=== PATIENT | female | born 1950 | race Caucasian/White ===

== ENCOUNTER 2025-04-13 18:50 | Emergency (ER) | payer OTHER ==
--- OUTSIDE RECORDS SUMMARY | 2025-04-13 18:53 | XMS REPORT | Clinical Summary ---
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 Gender Identity Not on file Sexual Orientation Not on file Plan of Treatment Upcoming Encounters Date Type Department Care Team (Late st Contact Info) Description 04/14/2025 1:00 PM CDT NPR MDA PATIENT ACCESS Rosy Haines MD [address] [place] [address] [phone] [email or web address] 04/14/2025 1:45 PM CDT Hospital Encounter Breast Imaging [address] [facility], 5th Floor Ele[address] [place], [place] [id number] Rosy Haines MD [address] [place] [address] [phone] [email or web address] Health Maintenance Due Date Last Done Comments Pneumococcal Vaccine: 50+ Ye ars (1 of 1 - PCV) 2001 COVID-19 Vaccine (4 - 2024- season) 2025 03/04/2021, 09/05/2020, 08/11/2020 Influenza Vaccine (#1) 2025 Insurance MEDICARE PART A AND B Member Subscriber Plan / Payer (Ef fective 2016-Present) Name:Ginger, Abbi Law Member ID:[id number] Relation to Subscriber:Self Name:Abbi Miles Subscriber ID:[id number] Payer ID:[id number] Group ID:Not on file Type:Medicare Address: [employer] [address] [place] [address] AET SENIOR SUPPLEMENT-SECONDARY ONLY [facility] Address: [address] [address] [place] [address] MEDICARE PART A AND B Member Subscriber Plan / Payer (Ef fective 2016-Present) Name:Ginger, Abbi Law Member ID:[id number] Relation to Subscriber:Self Name:Ginger, Abbi Law Subscriber ID:[id number] Payer ID:[id number] Group ID:Not on file Type:Medicare Address: [employer] [address] [place] [address] [place] SENIOR SUPPLEMENT-SECONDARY ONLY [facility] Address: [address] [address] [place] [address] Advance Directives * Full Code (Latest Code Status on File) Date Activated Date Inactivated Comments 04/07/2025 1:12 PM Update based o n Advanced Directive Documentation Care Teams Link Knitting Machine Operator Relationship Specialty Start Date End Date Rosy Haines MD [facility] [place] [address] [email or web address] PCP - General 09/02/15 Azalia Ken MD [facility] [place] [address] [email or web address] PCP - External Follow Up A 09/18/14 Kaiser Goodson MD [address] [place] [address] PCP - External Referring 04/04/25 Kaiser Goodson MD [address] [place] [address] PCP - External Follow Up B 04/04/25 Rosy Haines MD [address] [place] [id number] [email or web address] [email or web address] 09/09/15
[2025-04-13] MEDS ORDERED: FENTANYL CITR 100 MCG/2 ML ONE (19:36)
[2025-04-13] MEDS ORDERED: ONDANSETRON 4 MG/2 ML VIAL ONE (19:36)
[2025-04-13] MEDS ORDERED: NA CHLORIDE 0.9% 1,000 ML ONE (19:38)
[2025-04-13 19:43] LABS: Absolute Lymphocytes (CBC) 0.8 K/uL (0.7-4.9); Hematocrit 40.4 % (36.0-45.0); Hemoglobin 13.8 g/dL (12.0-15.0); MCH 30.4 pg (27.0-35.0); MCHC 34.3 g/dL (32.0-36.0); MCV 88.5 fL (80-100); MPV 7.9 fL (7.6-11.3); Nucleated RBC Absolute Count 0.0 (0-0); Nucleated Red Blood Cells % 0.0 % (0-0); RBC Red Blood Cell Count 4.56 M/uL (3.86-4.86); White Blood Count 7.40 thou/uL (4.3-10.9)
[2025-04-13 20:05] LABS: ALT/SGPT 38.0 U/L (13-56); AST/SGOT 32.0 U/L (15-37); Albumin 3.1 g/dL (3.4-5.0); Albumin/Globulin Ratio 0.5 (1.1-1.8); Alkaline Phosphatase 61.0 U/L (45-117); Anion Gap 9.6 mEq/L (5.0-15.0); BUN Blood Urea Nitrogen 17.0 mg/dL (7-18); Globulin 6.0 g/dL (2.3-3.5); Glucose Level 122.0 mg/dL (74-106); Lipase 74.0 U/L (13-75); Potassium 3.6 mEq/L (3.5-5.1)
--- NOTE | 2025-04-13 20:46 | RAD REPORT ---
EXAMINATION: CT ABDOMEN AND PELVIS WITHOUT AND WITH CONTRAST CLINICAL INDICATION: right flank pain TECHNIQUE: CT abdomen and pelvis was performed, before and after the administration of IV contrast, a s per department protocol. Axial, sagittal and coronal reconstructions were obtained. One or more of the following dose reduction techniques were used: Automated exposure control, adjustment of the m A and/or kV according to patient size, and/or iterative reconstruction. Unless otherwise specified, incidental findings do not require dedicated imaging follow-up. COMPARISON: 02/08/2016 FINDINGS: LOWER CHEST: The visualized lung bases are clear. Moderate hiatal hernia. LIVER: Mild fatty liver is seen. Several small low-density lesions are present likely benign cysts. N o intra or extrahepatic biliary tree dilatation suspected. Grossly unremarkable gallbladder. SPLEEN: Normal size. No focal lesion. PANCREAS: No mass, ductal dilation, or gregory-pancreatic fluid. ADRENALS: Normal; no mass. KIDNEYS AND URETERS: Mild right hydronephrosis and hydroureter is present. 4 mm calculus is present i n the distal right ureter. No left-sided urinary tract stone or hydronephrosis. URINARY BLADDER: Normal in appearance. No suspicious mass or stone. GASTROINTESTINAL TRACT: No evidence of bowel obstruction, free air, significant free fluid or abscess . Moderate stool is seen throughout the colon. APPENDIX: Appendix not visualized, but no inflammatory changes in region of appendix. LYMPH NODES: No lymphadenopathy. REPRODUCTIVE ORGANS: No pathologic process. MUSCULOSKELETAL: Mild lower lumbar spondylosis with mild anterolisthesis L4 on 5. ADDITIONAL FINDINGS: None. IMPRESSION: Mild/moderate right-sided hydronephrosis and hydroureter likely caused by a 4 mm lower right ureter s tone.
[2025-04-13 20:56] LABS: Sqamous Epithelial <5 /HPF (None Seen); Urine Culture Reflex Order NOT NEEDED; Urine Microscopic Reflex YN ORDER UMIC
[2025-04-13] MEDS ORDERED: TAMSULOSIN 0.4 MG SR CAP ONE (21:21)
[2025-04-13] MEDS ORDERED: KETOROLAC 30 MG/ML INJ ONE (21:21)
--- NOTE | 2025-04-13 21:35 | EDPHYS ---
Physician Documentation [facility] Name: Abbi Miles Age: 75 yrs Sex: Female : 1950 Arrival Date: 04/13/2025 Time: 18:50 Bed 6 Private MD: ED Physician Aman Swanson HPI: 04/13 19:20 This 75 yrs old Female presents to ER via Ambulatory with complaints of Abdominal Pain, cp Low Back Pain. 19:20 The patient presents with abdominal pain right lateral lower abdomen. cp 19:20 Onset: The symptoms/episode began/occurred today, with pain starting in right lower cp back and right flank at 1530. Associated signs and symptoms: Pertinent positives: nausea, Pertinent negatives: blood in stools, chest pain, constipation, diarrhea, fever, active vomiting. The symptoms are described as constant. Modifying factors: the symptoms are aggravated by movement. Historical: - Allergies: 19:00 Morphine; dd2 - PMHx: 19:00 Hypertensive disorder; dd2 - PSHx: 19:00 Total abdominal hysterectomy; Appendectomy; dd2 - Immunization history:: Adult Immunizations up to date. - Infectious Disease History:: Denies. - Social history:: Smoking status: Patient denies any tobacco usage or history of. ROS: 19:25 Constitutional: Negative for body aches, chills, fever, poor PO intake, cp 19:25 Cardiovascular: Negative for chest pain, palpitations, cp 19:25 Respiratory: Negative for cough, shortness of breath, wheezing, 19:25 Abdomen/GI: Positive for abdominal pain, nausea, Negative for diarrhea, constipation, active vomiting, 19:25 Back: Positive for flank pain, on the right, 19:25 : Negative for difficulty urinating, 19:25 Neuro: Negative for altered mental status, dizziness, headache, weakness, 19:25 All other systems are negative, Exam: 19:25 Head/Face: Normocephalic, atraumatic. cp 19:25 Constitutional: The patient appears in no acute distress, alert, awake, non-diaphoretic, non-toxic, well developed, well nourished, uncomfortable, 19:25 Eyes: Periorbital structures: appear normal, Conjunctiva: normal, no exudate, no injection, Sclera: no appreciated abnormality, Lids and lashes: appear normal, bilaterally, 19:25 ENT: External ear(s): are unremarkable, Nose: is normal, Mouth: Lips: moist, Oral mucosa: moist, Posterior pharynx: Airway: no evidence of obstruction, patent, 19:25 Neck: ROM/movement: is normal, is supple, without pain, no range of motions limitations, 19:25 Chest/axilla: Inspection: normal, 19:25 Cardiovascular: Rate: normal, 19:25 Respiratory: the patient does not display signs of respiratory distress, Respirations: normal, no use of accessory muscles, no retractions, labored breathing, is not present, Breath sounds: are clear throughout, no decreased breath sounds, no stridor, no wheezing, 19:25 Abdomen/GI: Inspection: abdomen appears normal, Bowel sounds: active, all quadrants, Palpation: soft, in all quadrants, moderate abdominal tenderness, in the posterior aspect of right lateral abdomen, anterior aspect of right lateral abdomen and right lower quadrant, rebound tenderness, is not appreciated, involuntary guarding, is not appreciated, 19:25 Back: pain, that is moderate, of the right low back, ROM is painful, with all movement, 19:25 Neuro: Orientation: to person, place \T\ time. Mentation: is normal, Motor: moves all fours, strength is normal, Sensation: is normal, Vital Signs: 18:58 BP 166 / 90; Pulse 93; Resp 17; Temp 98.9; Pulse Ox 99% ; Weight 81.65 kg; Pain 10/10; dd2 19:45 BP 144 / 73; Pulse 85; Resp 16; Pulse Ox 95% ; vc1 20:45 BP 138 / 80; Pulse 86; Resp 16; Pulse Ox 95% ; vc1 21:57 BP 128 / 70; Pulse 88; Resp 18; Temp 98.9; Pulse Ox 96% ; Pain 3/10; vc1 18:58 Pain Scale: Adult dd2 21:57 Pain Scale: Adult vc1 Emilia Coma Score: 22:06 Eye Response: spontaneous(4). Motor Response: obeys commands(6). Verbal Response: bm8 oriented(5). Total: 15. MDM: 18:56 Medical Screening Exam initiated cp 20:00 Differential diagnosis: appendicitis, cholecystitis, Cholelithiasis, diverticulitis, cp gastritis, Pyelonephritis, Ureterolithiasis, urinary tract infection, sepsis. 21:34 Data reviewed: vital signs, nurses notes, lab test result(s), radiologic studies, CT cp scan, and as a result, I will discharge patient. 21:35 I considered the following discharge prescriptions or medication management in the emergency department Medications were administered in the Emergency Department. See MAR. 21:35 Care significantly affected by the following chronic conditions: Hypertension. Counseling: I had a detailed discussion with the patient and/or guardian regarding the historical points, exam findings, and any diagnostic results supporting the discharge/admit diagnosis, lab results, radiology results, to return to the emergency department if symptoms worsen or persist or if there are any questions or concerns that arise at home. Response to treatment: pain and nausea improved, and as a result, I will discharge patient. 04/13 19:12 Order name: CBC with Diff; Complete Time: 21:11 04/13 21:11 Interpretation: Normal except: ERNA% 84.0; LYM% 10.7. 04/13 19:12 Order name: CMP; Complete Time: 21:11 04/13 21:11 Interpretation: Normal except: GLUC 122; GFR 61; TP 9.1; ALB 3.1; GLOB 6.0; A/G 0.5. 04/13 19:12 Order name: Lipase; Complete Time: 21:11 04/13 19:12 Order name: UA Rfx Eddie Cult if indicated; Complete Time: 21:11 04/13 21:11 Interpretation: Normal except: UCLA Extremely Turbid; UBLD 3+ (OVER); UPH 8.0; URBC >50. 04/13 19:51 Order name: CT Abd/Pelvis- W/WO Contrast; Complete Time: 21:11 04/13 19:12 Order name: IV Saline Lock; Complete Time: 19:49 04/13 19:12 Order name: Labs collected and sent; Complete Time: 19:49 cp Administered Medications: 19:48 Drug: NS 0.9% IV 1000 ml IV at 1000 ml once; to be given as a bolus over 60 minutes vc1 Route: IV; Rate: 1000 ml; Site: right wrist; 21:20 Follow up: IV Status: Completed infusion; IV Intake: 1000ml vc1 19:49 Drug: Ondansetron IVP 4 mg IVP once; over 2 minutes Route: IVP; Site: right wrist; vc1 20:00 Follow up: Response: No adverse reaction; Marked relief of symptoms vc1 19:49 Drug: fentaNYL (PF) IVP 25 mcg IVP once Route: IVP; Site: right wrist; vc1 20:00 Follow up: Response: No adverse reaction; Marked relief of symptoms vc1 21:26 Drug: Flomax PO 0.4 mg PO once Route: PO; bm8 22:07 Follow up: Response: No adverse reaction bm8 21:26 Drug: Ketorolac IVP 15 mg IVP once Route: IVP; Site: right forearm; bm8 22:07 Follow up: Response: No adverse reaction bm8 22:07 Not Given (Duplicate Order): fentanyl (pf)25 mcg IVP once bm8 Disposition: 04/14 05:22 Chart complete. cp Disposition Summary: 04/13/25 21:35 Discharge Ordered Notes: Location: Home cp Problem: new cp Symptoms: have improved cp Condition: Stable cp Diagnosis - Calculus of ureter - right cp Followup: cp - With: Yao Deleon MD - When: 2 - 3 days - Reason: pain continues Discharge Instructions: - Discharge Summary Sheet cp - Kidney Stones cp - Renal Colic cp Forms: - Medication Reconciliation Form cp - Antibiotic Education cp - Prescription Opioid Use cp - Patient Portal Instructions cp - Leadership Thank You Letter cp Prescriptions: - Flomax 0.4 mg Oral capsule - take 1 capsule ORAL route daily As needed; 5 capsule; Refills: 0, Product cp Selection Permitted - Zofran 4 mg Oral Tablet - take 1 tablet ORAL route every 12 hours As needed; 20 tablet; Refills: 0, cp Product Selection Permitted - Tylenol-Codeine #3 300mg-30mg Oral tablet - take 1 tablet ORAL route every 4 hours As needed; 16 tablet; Refills: 0, cp Product Selection Permitted Addendum: 04/16/2025 06:53 Co-signature as Attending Physician, Aman Swanson MD I agree with the assessment and c willett plan of care. Signatures: Dispatcher [employer] Aman Zaman MD MD cha Page, Corey, PA-C PA-C cp Robert Allison RN RN bp Jessica Duarte RN RN vc1 Hayden Lacy RN RN bm8 RORO SEWELL RN RN dd2 Corrections: (The following items were deleted from the chart) 04/14 05:07 04/13 19:20 The patient presents with abdominal pain right lateral abdomen cp cp
--- NOTE | 2025-04-13 21:35 | ER ---
Nurse's Notes [facility] Name: Abbi Miles Age: 75 yrs Sex: Female : 1950 Arrival Date: 04/13/2025 Time: 18:50 Bed 6 Private MD: Diagnosis: Calculus of ureter-right Presentation: 04/13 18:58 Chief complaint: Patient states: rt lower back pain that began at 3:30pm and is now dd2 radiating to rt flank and Rt lower stomach. reports nausea, cold sweats. Coronavirus screen: At this time, the client does not indicate any symptoms associated with coronavirus-19. Ebola Screen: No symptoms or risks identified at this time. Initial Sepsis Screen: Does the patient meet any 2 criteria? No. Patient's initial sepsis screen is negative. Does the patient have a suspected source of infection? No. Patient's initial sepsis screen is negative. Risk Assessment: Do you want to hurt yourself or someone else? Patient reports no desire to harm self or others. Onset of symptoms was April 13, 2025 at 15:30. 18:58 Method Of Arrival: Ambulatory dd2 18:58 Acuity: TELMA 3 dd2 Triage Assessment: 19:00 General: Appears in no apparent distress. uncomfortable, Behavior is cooperative, dd2 appropriate for age, anxious. Pain: Complains of pain in right low back Pain radiates to anterior aspect of right lateral abdomen and right lower quadrant. GI: Reports lower abdominal pain, nausea. : Reports pain in right flank(s), lower quadrant(s) in lower back. Historical: - Allergies: 19:00 Morphine; dd2 - PMHx: 19:00 Hypertensive disorder; dd2 - PSHx: 19:00 Total abdominal hysterectomy; Appendectomy; dd2 - Immunization history:: Adult Immunizations up to date. - Infectious Disease History:: Denies. - Social history:: Smoking status: Patient denies any tobacco usage or history of. Screenin:00 [facility] ED Fall Risk Assessment (Adult) History of falling in the last 3 months, vc1 including since admission No falls in past 3 months (0 pts) Confusion or Disorientation No (0 pts) Intoxicated or Sedated No (0 pts) Impaired Gait No (0 pts) Mobility Assist Device Used No (0 pt) Altered Elimination No (0 pt) Score/Fall Risk Level 0 - 2 = Low Risk Oriented to surroundings, Maintained a safe environment, Educated pt \T\ family on fall prevention, incl call for assistance when getting out of bed, Assessed \T\ reinforced patient's understanding of fall precautions, Hourly rounding (assess needs \T\ fall precautionary measures) done. Abuse screen: Denies threats or abuse. Nutritional screening: No deficits noted. Tuberculosis screening: No symptoms or risk factors identified. Assessment: 19:00 General: Appears in no apparent distress. uncomfortable, slender, well groomed, well vc1 developed, well nourished, Behavior is calm, cooperative, appropriate for age. 19:00 Pain: Complains of pain in right low back Pain radiates to anterior aspect of right vc1 lateral abdomen and right lower quadrant Pain currently is 7 out of 10 on a pain scale. Quality of pain is described as sharp, Pain began suddenly, Noted to be grimacing. Neuro: Level of Consciousness is awake, alert, obeys commands, Oriented to person, place, time, situation, Appropriate for age. Cardiovascular: Heart tones S1 S2 present Capillary refill < 3 seconds Patient's skin is warm and dry. Respiratory: Airway is patent Respiratory effort is even, unlabored, Respiratory pattern is regular, symmetrical, Breath sounds are clear. GI: Abdomen is flat, Bowel sounds present X 4 quads. Abd is soft Abdomen is tender to palpation in posterior aspect of right lateral abdomen. : No deficits noted. No signs and/or symptoms were reported regarding the genitourinary system. EENT: No deficits noted. No signs and/or symptoms were reported regarding the EENT system. Derm: Skin is intact, is healthy with good turgor, Skin is dry, Skin is normal, Skin temperature is warm. Musculoskeletal: Circulation, motion, and sensation intact. Range of motion: intact in all extremities. 20:55 Reassessment: Patient appears in no apparent distress at this time. Patient and/or vc1 family updated on plan of care and expected duration. Pain level reassessed. Patient is alert, oriented x 3, equal unlabored respirations, skin warm/dry/pink. Patient states feeling better. Patient states symptoms have improved. 22:06 Reassessment: Patient appears in no apparent distress at this time. Patient and/or bm8 family updated on plan of care and expected duration. Pain level reassessed. Patient is alert, oriented x 3, equal unlabored respirations, skin warm/dry/pink. Patient states feeling better. Patient states symptoms have improved. Vital Signs: 18:58 BP 166 / 90; Pulse 93; Resp 17; Temp 98.9; Pulse Ox 99% ; Weight 81.65 kg; Pain 10/10; dd2 19:45 BP 144 / 73; Pulse 85; Resp 16; Pulse Ox 95% ; vc1 20:45 BP 138 / 80; Pulse 86; Resp 16; Pulse Ox 95% ; vc1 21:57 BP 128 / 70; Pulse 88; Resp 18; Temp 98.9; Pulse Ox 96% ; Pain 3/10; vc1 18:58 Pain Scale: Adult dd2 21:57 Pain Scale: Adult vc1 Emilia Coma Score: 22:06 Eye Response: spontaneous(4). Motor Response: obeys commands(6). Verbal Response: bm8 oriented(5). Total: 15. ED Course: 18:54 Patient arrived in ED. im 18:56 Aman Acevedo PA-C is PHCP. cp 18:56 Fidencio Blue MD is Attending Physician. cp 19:00 Triage completed. dd2 19:00 Arm band placed on. dd2 19:00 Patient has correct armband on for positive identification. Bed in low position. Call vc1 light in reach. Provided Education on: Plan of care. Pulse ox on. NIBP on. 19:29 Inserted saline lock: 22 gauge in right forearm, using aseptic technique. Blood vc1 collected. Flushed with 10 mL NS. 19:29 Initial lab(s) drawn, by me, sent to lab. vc1 19:47 Jessica Duarte, JORGE is Primary Nurse. vc1 19:51 Aman Swanson MD is Attending Physician. cp 20:29 CT Abd/Pelvis- W/WO Contrast In Process Unspecified. EDMS 21:35 Yao Deleon MD is Referral Physician. cp 22:06 No provider procedures requiring assistance completed. IV discontinued, intact, bm8 bleeding controlled, No redness/swelling at site. Pressure dressing applied. Administered Medications: 19:48 Drug: NS 0.9% IV 1000 ml IV at 1000 ml once; to be given as a bolus over 60 minutes vc1 Route: IV; Rate: 1000 ml; Site: right wrist; 21:20 Follow up: IV Status: Completed infusion; IV Intake: 1000ml vc1 19:49 Drug: Ondansetron IVP 4 mg IVP once; over 2 minutes Route: IVP; Site: right wrist; vc1 20:00 Follow up: Response: No adverse reaction; Marked relief of symptoms vc1 19:49 Drug: fentaNYL (PF) IVP 25 mcg IVP once Route: IVP; Site: right wrist; vc1 20:00 Follow up: Response: No adverse reaction; Marked relief of symptoms vc1 21:26 Drug: Flomax PO 0.4 mg PO once Route: PO; bm8 22:07 Follow up: Response: No adverse reaction bm8 21:26 Drug: Ketorolac IVP 15 mg IVP once Route: IVP; Site: right forearm; bm8 22:07 Follow up: Response: No adverse reaction bm8 22:07 Not Given (Duplicate Order): fentanyl (pf)25 mcg IVP once bm8 Medication: 19:51 VIS not applicable for this client. vc1 Intake: 21:20 IV: 1000ml; Total: 1000ml. vc1 Outcome: 21:35 Discharge ordered by . cp 22:06 Discharged to home ambulatory, bm8 22:06 Condition: stable 22:06 Instructed on discharge instructions, follow up and referral plans. no drinking with medication, no driving heavy equipment, medication usage, safety practices, 22:08 Demonstrated understanding of instructions, follow-up care, medications, Prescriptions bm8 given X 3, 22:08 Patient left the ED. bm8 Signatures: Dispatcher [employer] EDSD Aman Acevedo PA-C PA-C cp Calcote, Vanessa RN RN vc1 Bridgette [place] Brad RN RN bm8 RORO SEWELL RN RN dd2 Corrections: (The following items were deleted from the chart) 19:54 19:00 General: See triage assessment. vc1 vc1
[2025-04-14 02:41] VITALS: TEMP 98.9
[2025-04-14 02:45] VITALS: BP 128/70; O2SAT 96
== END 2025-04-13 22:08 | disposition home or self-care (01) ==
LOC: ER 18:50
DX: N20.1 Calculus of ureter (principal)
CPT/HCPCS: 85025; 81001; 36415; 83690; 80053; 74178; 99284; Q9967; J1885; J3010; J2405; J7030

== ENCOUNTER 2025-04-16 17:54 | Emergency (ER) | payer OTHER ==
--- OUTSIDE RECORDS SUMMARY | 2025-04-16 17:57 | XMS REPORT | Clinical Summary ---
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 Gender Identity Not on file Sexual Orientation Not on file Plan of Treatment Upcoming Encounters Date Type Department Care Team (Late st Contact Info) Description 04/22/2025 10:30 AM CDT NPR MDA PATIENT ACCESS Rosy Haines MD [address] [place] [id number] [email or web address] 04/22/2025 10:50 AM CDT Appointment Breast Imaging [address] [facility], 5th [place] [address] Rosy Haines MD [address] [place] [address] [phone] [email or web address] Health Maintenance Due Date Last Done Comments Pneumococcal Vaccine: 50+ Ye ars (1 of 1 - PCV) 2001 COVID-19 Vaccine (2024- season) 2025 03/04/2021, 09/05/2020, 08/11/2020 Influenza Vaccine (#1) 2025 Insurance MEDICARE PART A AND B [employer] SENIOR SUPPLEMENT-SECONDARY ONLY [facility] Address: [address] [address] [place] [address] MEDICARE PART A AND B [employer] SENIOR SUPPLEMENT-SECONDARY ONLY [facility] Address: [address] [address] [place] [address] Advance Directives * Full Code (Latest Code Status on File) Date Activated Date Inactivated Comments 04/07/2025 1:12 PM Update based o n Advanced Directive Documentation Care Teams Car Pick Up Driver Relationship Specialty Start Date End Date Rosy Haines MD [address] [place] [address] [email or web address] PCP - General 09/02/15 Azalia Ken MD [address] [place] [address] [email or web address] PCP - External Follow Up A 09/18/14 Kaiser Goodson MD [address] [place] [address] PCP - External Referring 04/04/25 Kaiser Goodson MD [address] [place] [address] PCP - External Follow Up B 04/04/25 Rosy Haines MD [address] [place] [id number] [email or web address] Physician 09/09/15
[2025-04-16] MEDS ORDERED: ONDANSETRON 4 MG/2 ML VIAL ONE (18:42)
[2025-04-16] MEDS ORDERED: NA CHLORIDE 0.9% 500 ML ONE (18:42)
[2025-04-16] MEDS ORDERED: ONDANSETRON 4 MG (ODT) TAB ONE (18:42)
[2025-04-16 19:03] LABS: Absolute Lymphocytes (CBC) 0.8 K/uL (0.7-4.9); Hematocrit 43.4 % (36.0-45.0); Hemoglobin 15.2 g/dL (12.0-15.0); MCH 30.9 pg (27.0-35.0); MCHC 35.0 g/dL (32.0-36.0); MCV 88.2 fL (80-100); MPV 7.6 fL (7.6-11.3); Nucleated RBC Absolute Count 0.0 (0-0); Nucleated Red Blood Cells % 0.0 % (0-0); RBC Red Blood Cell Count 4.92 M/uL (3.86-4.86); White Blood Count 7.30 thou/uL (4.3-10.9)
[2025-04-16 19:06] LABS: Sqamous Epithelial <5 /HPF (None Seen); Urine Crystals Unidentified Moderate /HPF (None Seen); Urine Culture Reflex Order REFLEXED; Urine Microscopic Reflex YN ORDER UMIC; Urine WBC Clump Occasional /HPF (None Seen); Urine Yeast (Budding) Many /HPF (None Seen)
[2025-04-16 19:26] LABS: ALT/SGPT 45.0 U/L (13-56); AST/SGOT 40.0 U/L (15-37); Albumin 3.7 g/dL (3.4-5.0); Albumin/Globulin Ratio 0.6 (1.1-1.8); Alkaline Phosphatase 70.0 U/L (45-117); Anion Gap 10.2 mEq/L (5.0-15.0); BUN Blood Urea Nitrogen 15.0 mg/dL (7-18); Globulin 6.5 g/dL (2.3-3.5); Glucose Level 107.0 mg/dL (74-106); Lipase 116.0 U/L (13-75); Potassium 3.2 mEq/L (3.5-5.1)
[2025-04-16] MEDS ORDERED: CEFTRIAXONE 1000 MG/VIAL ONE (20:28)
--- NOTE | 2025-04-16 20:55 | RAD REPORT ---
EXAMINATION: CT Stone Protocol CLINICAL INDICATION: Female, 75 years old. right flank pain, hx of ureter stone TECHNIQUE: CT abdomen and pelvis was performed, without IV contrast, as per department protocol. Axia l, sagittal and coronal reconstructions were obtained. One or more of the following dose reduction techniques were used: Automated exposure control, adjustment of the mA and kV according to the patien t size, and iterative reconstruction. Unless otherwise specified, incidental findings do not require dedicated imaging follow-up. COMPARISON: 04/13/2025 FINDINGS: The lack of intravenous contrast limits the sensitivity of this exam for evaluation of solid visceral organs, vascular structures, and retroperitoneum. LOWER CHEST: The visualized lung bases are clear. LIVER: Normal in size and contour. No focal lesion. BILIARY SYSTEM: No suspicious abnormalities. SPLEEN: Normal size. No focal lesion. PANCREAS: No mass, ductal dilation, or gregory-pancreatic fluid. ADRENALS: Normal; no mass. KIDNEYS AND URETERS: Normal size and contour. Mild right hydroureteronephrosis. 4 mm calculus at the right vesicoureteral junction.. URINARY BLADDER: Normal contour. GASTROINTESTINAL TRACT: Moderate sliding hiatal hernia. No evidence of bowel obstruction, significant free fluid, free air or abscess. APPENDIX: Appendix not visualized, but no inflammatory changes in region of appendix. LYMPH NODES: No lymphadenopathy. MUSCULOSKELETAL: No acute or suspicious osseous abnormality. ADDITIONAL FINDINGS: Stable postsurgical changes in the right lower quadrant could relate to hernia r epair. IMPRESSION: Mild right hydroureteronephrosis. 4 mm distal right ureteral calculus at the vesicoureteral junction, probably represents the cause of obstruction. THIS REPORT CONTAINS FINDINGS THAT MAY BE CRITICAL TO PATIENT CARE. The findings were verbally commun icated via telephone to Aman Acevedo, PAC on 04/16/2025 8:53 PM.
[2025-04-16] MEDS ORDERED: FENTANYL CITR 100 MCG/2 ML ONE (21:07)
[2025-04-16] MEDS ORDERED: MAGNESIUM SULFATE 1 gm IVPB 1 GM/100 ML BAG IV ONE (21:26)
[2025-04-16] MEDS ORDERED: TAMSULOSIN 0.4 MG SR CAP ONE (21:26)
[2025-04-16] MEDS ORDERED: HYDROCODONE/APAP 7.5/325 MG TAB ONE (22:03)
[2025-04-16] MEDS ORDERED: CIPROFLOXACIN HCL 500 MG TAB ONE (22:05)
--- NOTE | 2025-04-16 22:15 | ER ---
Nurse's Notes [facility] Name: Abbi Miles Age: 75 yrs Sex: Female : 1950 Arrival Date: 04/16/2025 Time: 17:54 Bed 17 Private MD: Diagnosis: Calculus of ureter-right Presentation: 04/16 18:14 Chief complaint: Patient states: PAIN RT LOWER BACK, RT FLANK AND RT LOWER STOMACH THAT dd2 RETURNED ON MONDAY EVENING AND WORSE TODAY. REPORTS N/V TODAY. WAS SEEN HERE ON 04/13/2025 FOR SAME SYMPTOMS. REPORTS TAKING THE FLOMAX PRESCRIBED. Coronavirus screen: At this time, the client does not indicate any symptoms associated with coronavirus-19. Ebola Screen: No symptoms or risks identified at this time. Initial Sepsis Screen: Does the patient meet any 2 criteria? No. Patient's initial sepsis screen is negative. Does the patient have a suspected source of infection? No. Patient's initial sepsis screen is negative. Risk Assessment: Do you want to hurt yourself or someone else? Patient reports no desire to harm self or others. Onset of symptoms was April 14, 2025. 18:14 Method Of Arrival: Wheelchair dd2 18:14 Acuity: TELMA 3 dd2 Triage Assessment: 18:16 General: Appears in no apparent distress. uncomfortable, Behavior is cooperative, dd2 appropriate for age, anxious. Pain: Complains of pain in right low back, posterior aspect of right lateral abdomen, anterior aspect of right lateral abdomen and right lower quadrant. GI: Reports lower abdominal pain, nausea, vomiting. : Reports pain in right flank(s), lower quadrant(s) in lower back. Historical: - Allergies: 18:16 Morphine; dd2 - PMHx: 18:16 Hypertensive disorder; dd2 - PSHx: 18:16 Appendectomy; Total abdominal hysterectomy; dd2 - Immunization history:: Adult Immunizations. - Infectious Disease History:: Denies. - Social history:: Smoking status: Patient denies any tobacco usage or history of. Screenin:30 [facility] ED Fall Risk Assessment (Adult) History of falling in the last 3 months, km10 including since admission No falls in past 3 months (0 pts) Confusion or Disorientation No (0 pts) Intoxicated or Sedated No (0 pts) Impaired Gait No (0 pts) Mobility Assist Device Used No (0 pt) Altered Elimination No (0 pt) Score/Fall Risk Level 0 - 2 = Low Risk Oriented to surroundings, Maintained a safe environment, Educated pt \T\ family on fall prevention, incl call for assistance when getting out of bed, Hourly rounding (assess needs \T\ fall precautionary measures) done. 19:30 Abuse screen: Denies threats or abuse. Denies injuries from another. Nutritional km10 screening: No deficits noted. Tuberculosis screening: No symptoms or risk factors identified. Assessment: 21:15 Reassessment: Patient and/or family updated on plan of care and expected duration. Pain km10 level reassessed. 21:15 Pain: Complains of pain in back and right lower quadrant Pain currently is 8 out of 10 km10 on a pain scale. 21:30 GI: Bowel sounds present X 4 quads. Abdomen is tender to palpation in left upper km10 quadrant. 22:00 Reassessment: Patient appears in no apparent distress at this time. Patient is alert, km10 oriented x 3, equal unlabored respirations, skin warm/dry/pink. Patient states feeling better. 22:17 Reassessment: pt has magnesium running infusion at this time, 15 minutes remaining. km10 Will discharge after completion of this medication. Vital Signs: 18:14 BP 152 / 83; Pulse 79; Resp 18; Temp 98.6; Pulse Ox 100% ; Weight 81.65 kg; Pain 10/10; dd2 19:34 BP 172 / 75; Pulse 82; Resp 16; Pulse Ox 100% on R/A; km10 20:39 BP 147 / 66; Pulse 80; Resp 16; Pulse Ox 100% on R/A; km10 21:58 BP 137 / 64; Pulse 86; Resp 16; Pulse Ox 100% on R/A; km10 23:00 BP 156 / 84; Pulse 84; Resp 16; Pulse Ox 96% on R/A; km10 18:14 Pain Scale: Adult dd2 Emilia Coma Score: 21:58 Eye Response: spontaneous(4). Motor Response: obeys commands(6). Verbal Response: km10 oriented(5). Total: 15. 23:00 Eye Response: spontaneous(4). Motor Response: obeys commands(6). Verbal Response: km10 oriented(5). Total: 15. ED Course: 17:55 Patient arrived in ED. mr 17:57 Aman Aceved[facility] PA-C [facility]. cp 17:57 Aman Swanson MD is Attending Physician. cp 18:16 Triage completed. dd2 18:16 Arm band placed on right wrist. dd2 18:53 Robert Allison, JORGE is Primary Nurse. bp 19:15 Patient has correct armband on for positive identification. Bed in low position. Call km10 light in reach. Side rails up X2. Adult w/ patient. 19:15 Provided Education on: plan of care. Door closed. Noise minimized. Warm blanket given. km10 Pillow given. 19:47 CT Stone Protocol In Process Unspecified. EDMS 20:00 No provider procedures requiring assistance completed. km10 20:00 IV is patent, is intact, Flushed right peripheral line with 5 ml normal saline. km10 21:15 Notified Nurse Practitioner and/or Physician Sub Acute Care Nurse of increase in pain 8/10. km10 22:12 Yao Deleon MD is Referral Physician. cp 22:58 IV discontinued, intact, bleeding controlled, No redness/swelling at site. Pressure km10 dressing applied. Administered Medications: 18:53 Drug: Ondansetron IVP 4 mg IVP once; over 2 minutes Route: IVP; Site: right antecubital;bp 21:13 Follow up: Response: No adverse reaction km10 18:53 Drug: NS 0.9% IV 500 ml 500 ml IV at 1 bolus once; to be given as a bolus over 60 bp minutes Volume: 500 ml; Route: IV; Rate: 1 bolus; Site: right antecubital; 21:13 Follow up: Response: No adverse reaction; IV Status: Completed infusion km10 20:44 Drug: Rocephin IV 1 grams IV at calculated rate once; Given slow IV push per pharmacy km10 instructions Route: IV; Rate: calculated rate; Site: right antecubital; 21:13 Follow up: Response: No adverse reaction; IV Status: Completed infusion km10 21:22 Drug: fentaNYL (PF) IVP 25 mcg IVP once Route: IVP; Site: right antecubital; km10 22:17 Follow up: Response: No adverse reaction; Pain is decreased km10 21:33 Drug: Magnesium Sulfate IVPB 1 grams IVPB once over 1 hrs Route: IVPB; Infused Over: 1 km10 hrs; Site: right antecubital; 22:59 Follow up: Response: No adverse reaction; IV Status: Completed infusion 10 21:33 Drug: Flomax PO 0.4 mg PO once Route: PO; km10 22:17 Follow up: Response: No adverse reaction km10 22:09 Drug: Ciprofloxacin PO 500 mg PO once Route: PO; km10 22:17 Follow up: Response: No adverse reaction km10 22:16 Drug: Hydrocodone-Acetaminophen PO (7.5 mg-325 mg) 1 tabs PO once; RASS on ADMIN: km10 Combtv4, Very Agttd3, Agttd2, Rstlss1, AlertClm0, Drwsy-1, Lt Sdtn-2, Mod Sdtn-3, Dp Sdtn-4, UnArsble-5 Route: PO; 22:59 Follow up: Response: No adverse reaction km10 Medication: 22:48 VIS not applicable for this client. km10 Outcome: 22:14 Discharge ordered by MD. cp 22:58 Discharged to home ambulatory, with family, km10 22:58 Condition: stable 22:58 Discharge instructions given to patient, family, Instructed on discharge instructions, follow up and referral plans. Demonstrated understanding of instructions, follow-up care, 23:01 Patient left the ED. km10 Signatures: Dispatcher [employer] EDIL Blossom Pichardo, Jareth Reg Aman Llanos, PAAlthea PARobert Hamlin cp, RN RN bp RORO SEWELL RN RN dd2 Argenis Spain RN RN km10 Corrections: (The following items were deleted from the chart) 22:01 22:00 Reassessment: Patient and/or family updated on plan of care and expected km10 duration. Pain level reassessed. km10 22:27 Discharged to home ambulatory, with family, km10 km10 22:27 Condition: stable km10 km10 : 22:27 Discharge instructions given to patient, family, Instructed on discharge km10 instructions, follow up and referral plans. medication usage, Demonstrated understanding of instructions, follow-up care, medications, Prescriptions given X 2, km10
--- NOTE | 2025-04-16 22:15 | EDPHYS ---
Physician Documentation [facility] Name: Abbi Miles Age: 75 yrs Sex: Female : 1950 Arrival Date: 04/16/2025 Time: 17:54 Bed 17 Private MD: ED Physician Aman Swanson HPI: 04/16 19:00 This 75 yrs old Female presents to ER via Wheelchair with complaints of Abdominal Pain, cp Vomiting. 19:00 The patient complains of pain in the right flank. cp 19:00 The pain radiates to the abdomen. Associated signs and symptoms: Pertinent positives: cp nausea, vomiting. Severity of pain: in the emergency department the pain is unchanged despite home interventions. 19:00 Patient is a 75-year-old female who returns to the emergency department after being cp seen 04/13/2025 and diagnosed with a right ureter stone. Patient returns with complaints of fever, increased pain and nausea and vomiting. Patient admits that she did not take her prescribed Tylenol with codeine for pain and when the pain started she attempted to take the Tylenol with codeine but vomited. Patient is not actively vomiting but reports increased right flank pain. Historical: - Allergies: 18:16 Morphine; dd2 - PMHx: 18:16 Hypertensive disorder; dd2 - PSHx: 18:16 Appendectomy; Total abdominal hysterectomy; dd2 - Immunization history:: Adult Immunizations. - Infectious Disease History:: Denies. - Social history:: Smoking status: Patient denies any tobacco usage or history of. ROS: 19:05 Constitutional: Negative for body aches, chills, fever, cp 19:05 Eyes: Negative for injury, pain, redness, and discharge, cp 19:05 Abdomen/GI: Positive for abdominal pain, nausea and vomiting, Negative for diarrhea, constipation, 19:05 Back: Positive for flank pain, on the right, 19:05 : Positive for hematuria, 19:05 Neuro: Negative for altered mental status, dizziness, headache, weakness, 19:05 All other systems are negative, Exam: 19:05 Head/Face: Normocephalic, atraumatic. cp 19:05 Constitutional: The patient appears in no acute distress, alert, awake, non-diaphoretic, non-toxic, well developed, well nourished, uncomfortable, 19:05 Eyes: Periorbital structures: appear normal, Conjunctiva: normal, no exudate, no injection, Sclera: no appreciated abnormality, Lids and lashes: appear normal, bilaterally, 19:05 ENT: External ear(s): are unremarkable, Nose: is normal, Mouth: Lips: moist, Oral mucosa: moist, Posterior pharynx: Airway: no evidence of obstruction, patent, 19:05 Chest/axilla: Inspection: normal, 19:05 Cardiovascular: Rate: normal, Rhythm: regular, 19:05 Respiratory: the patient does not display signs of respiratory distress, Respirations: normal, no use of accessory muscles, no retractions, labored breathing, is not present, Breath sounds: are clear throughout, no decreased breath sounds, no stridor, no wheezing, 19:05 Abdomen/GI: Inspection: abdomen appears normal, Bowel sounds: active, all quadrants, Palpation: soft, in all quadrants, moderate abdominal tenderness, in the posterior aspect of right lateral abdomen and anterior aspect of right lateral abdomen, rebound tenderness, is not appreciated, involuntary guarding, is not appreciated, 19:05 Back: vertebral tenderness, is not appreciated, 19:05 Skin: cellulitis, is not appreciated, no rash present. Vital Signs: 18:14 BP 152 / 83; Pulse 79; Resp 18; Temp 98.6; Pulse Ox 100% ; Weight 81.65 kg; Pain 10/10; dd2 19:34 BP 172 / 75; Pulse 82; Resp 16; Pulse Ox 100% on R/A; km10 20:39 BP 147 / 66; Pulse 80; Resp 16; Pulse Ox 100% on R/A; km10 21:58 BP 137 / 64; Pulse 86; Resp 16; Pulse Ox 100% on R/A; km10 23:00 BP 156 / 84; Pulse 84; Resp 16; Pulse Ox 96% on R/A; km10 18:14 Pain Scale: Adult dd2 Roberts Coma Score: 21:58 Eye Response: spontaneous(4). Motor Response: obeys commands(6). Verbal Response: km10 oriented(5). Total: 15. 23:00 Eye Response: spontaneous(4). Motor Response: obeys commands(6). Verbal Response: km10 oriented(5). Total: 15. MDM: 18:18 Medical Screening Exam initiated cp 22:14 Data reviewed: vital signs, nurses notes, lab test result(s), radiologic studies, CT cp scan. 22:14 Differential diagnosis: nephrolithiasis, pyelonephritis, UTI, sepsis. I considered the cp following discharge prescriptions or medication management in the emergency department Medications were administered in the Emergency Department. See MAR. Counseling: I had a detailed discussion with the patient and/or guardian regarding the historical points, exam findings, and any diagnostic results supporting the discharge/admit diagnosis, lab results, radiology results, to return to the emergency department if symptoms worsen or persist or if there are any questions or concerns that arise at home. Response to treatment: the patient's symptoms have markedly improved after treatment, and as a result, I will discharge patient. ED course: Vital signs stable. Pain improved with meds. Discussed results of today's CT that showed right ureter stone that was 4 mm has moved to the vesicoureteral junction. Will discharge to home in anticipation that stone should be passed here in the next 24 hours. Prescription for oral antibiotics was given and patient was instructed to return to the emergency department worsening symptoms. 04/16 18:30 Order name: CBC with Diff; Complete Time: 20:11 cp 04/16 20:11 Interpretation: Normal except: RBC 4.92; HGB 15.2; ERNA% 83.3; LYM% 11.2. cp 04/16 18:30 Order name: CMP; Complete Time: 19:28 cp 04/16 22:14 Interpretation: Normal except: K 3.2; GLUC 107; CRE 1.14; GFR 51; AST 40; TP 10.2; GLOB cp 6.5; A/G 0.6. 04/16 18:30 Order name: Lipase; Complete Time: 19:28 cp 04/16 18:30 Order name: UA Rfx Eddie Cult if indicated; Complete Time: 19:28 cp 04/16 22:15 Interpretation: Normal except: UCLA Extremely Turbid; UKET 2+; UBLD 3+ (OVER); UPH 8.0; cp UWBC 10-20; URBC >50; UNCX Moderate; UWBC Clump Occasional; BYST Many. 04/16 19:14 Order name: Urine Culture EDMS 04/16 19:30 Order name: CT Stone Protocol; Complete Time: 21:18 cp 04/16 18:30 Order name: IV Saline Lock; Complete Time: 18:53 cp 04/16 18:30 Order name: Labs collected and sent; Complete Time: 18:53 cp 04/16 21:38 Order name: PO challenge; Complete Time: 21:43 cp Administered Medications: 18:53 Drug: Ondansetron IVP 4 mg IVP once; over 2 minutes Route: IVP; Site: right antecubital;bp 21:13 Follow up: Response: No adverse reaction 18:53 Drug: NS 0.9% IV 500 ml 500 ml IV at 1 bolus once; to be given as a bolus over 60 bp minutes Volume: 500 ml; Route: IV; Rate: 1 bolus; Site: right antecubital; 21:13 Follow up: Response: No adverse reaction; IV Status: Completed infusion 20:44 Drug: Rocephin IV 1 grams IV at calculated rate once; Given slow IV push per pharmacy instructions Route: IV; Rate: calculated rate; Site: right antecubital; 21:13 Follow up: Response: No adverse reaction; IV Status: Completed infusion 21:22 Drug: fentaNYL (PF) IVP 25 mcg IVP once Route: IVP; Site: right antecubital; 10 22:17 Follow up: Response: No adverse reaction; Pain is decreased 21:33 Drug: Magnesium Sulfate IVPB 1 grams IVPB once over 1 hrs Route: IVPB; Infused Over: 1 km10 hrs; Site: right antecubital; 22:59 Follow up: Response: No adverse reaction; IV Status: Completed infusion 21:33 Drug: Flomax PO 0.4 mg PO once Route: PO; 10 22:17 Follow up: Response: No adverse reaction 22:09 Drug: Ciprofloxacin PO 500 mg PO once Route: PO; 10 22:17 Follow up: Response: No adverse reaction 22:16 Drug: Hydrocodone-Acetaminophen PO (7.5 mg-325 mg) 1 tabs PO once; RASS on ADMIN: 10 Combtv4, Very Agttd3, Agttd2, Rstlss1, AlertClm0, Drwsy-1, Lt Sdtn-2, Mod Sdtn-3, Dp Sdtn-4, UnArsble-5 Route: PO; 22:59 Follow up: Response: No adverse reaction 10 Disposition Summary: 04/16/25 22:14 Discharge Ordered Notes: Location: Home cp Problem: new cp Symptoms: have improved cp Condition: Stable cp Diagnosis - Calculus of ureter - right(04/16/25 22:16) cp Followup: cp - With: Yao Deleon MD - When: 2 - 3 days - Reason: pain continues Discharge Instructions: - Discharge Summary Sheet cp - Potassium Content of Foods cp - Kidney Stones cp - Renal Colic cp - Dietary Guidelines to Help Prevent Kidney Stones cp Forms: - Medication Reconciliation Form cp - Antibiotic Education cp - Prescription Opioid Use cp - Patient Portal Instructions cp - Leadership Thank You Letter cp Addendum: 04/19/2025 07:25 Co-signature as Attending Physician, Aman Swanson MD I agree with the assessment and c willett plan of care. Signatures: Dispatcher [employer] EDAman Collazo MD MD cha Page, Corey, PA-C PA-C cp Robert Allison RN RN bp RORO SEWELL RN RN dd2 Argenis Spain RN RN km10 Corrections: (The following items were deleted from the chart) 04/16 22:16 22:14 Calculus of ureter cp cp
[2025-04-16 23:42] VITALS: TEMP 98.6
[2025-04-16 23:46] VITALS: BP 156/84; O2SAT 96
== END 2025-04-16 23:01 | disposition home or self-care (01) ==
LOC: ER 17:54
DX: N20.1 Calculus of ureter (principal)
CPT/HCPCS: 96365; 96367; 96361; 87088; 85025; 81001; 87086; 36415; 83690; 80053; 76377; 74176; 96375; 99284; Q0162; J3475; J3010; J2405; J7040; J0696